=== PATIENT | female | born 1985 | race Caucasian/White ===

== ENCOUNTER 2024-11-26 23:31 | Emergency (ER) | payer OTHER ==
[~2024-11-26] VITALS: Ht 167.6 cm; Wt 83.0 kg
[2024-11-27] MEDS: ALBUTEROL SULFATE 2.5 MG/3 ML NEBU NEB ONE (01:44)
[2024-11-27] MEDS: IPRATROPIUM BROMIDE 0.5 MG/2.5 ML NEBU NEB ONE (01:44)
[2024-11-27 01:45] LABS: *URINE HCG, QUAL NEGATIVE (NEGATIVE)
[2024-11-27] MEDS ORDERED: IPRATROPIUM BROMIDE 0.5 MG/2.5 ML NEBU ONE (01:47)
[2024-11-27] MEDS ORDERED: ALBUTEROL SULFATE 2.5 MG/3 ML NEBU ONE (01:47)
[2024-11-27 01:55] VITALS: O2SAT 96
[2024-11-27] MEDS: predniSONE 20 MG TABLET PO ONE (02:00)
[2024-11-27] MEDS: KETOROLAC TROMETHAMINE 30 MG INJ IM ONE (02:00)
[2024-11-27 02:05] VITALS: O2SAT 98; O2SAT 99
[2024-11-27] MEDS ORDERED: PRED20TA PO (02:34)
[2024-11-27] MEDS ORDERED: NAPR-1192 PO (02:34)
[2024-11-27] MEDS ORDERED: KETOROLAC TROMETHAMINE 30 MG INJ ONE (02:57)
[2024-11-27] MEDS ORDERED: predniSONE 20 MG TABLET ONE (02:58)
[2024-11-27 03:25] VITALS: BP 122/76; TEMP 98; O2SAT 100
== END 2024-11-27 03:26 | disposition home or self-care (01) ==
LOC: ER 23:50
DX: J45.909 Unspecified asthma, uncomplicated (principal); M54.9 Dorsalgia, unspecified; Z79.52 Long term (current) use of systemic steroids; Z88.0 Allergy status to penicillin
CPT/HCPCS: 99284; 84703; 94640; 93005; 96372; J1885; J7512; A4606; A4663; J3590